=== PATIENT | male | born 1975 ===

== ENCOUNTER 2021-11-26 10:38 | Emergency (ER) | payer MEDICAID, OTHER ==
[~2021-11-26] VITALS: Ht 170.2 cm; Wt 68.0 kg
[2021-11-26] MEDS ORDERED: NAPR500T31 PO (11:59)
[2021-11-26] MEDS ORDERED: CEPH500T PO (11:59)
[2021-11-26 12:08] VITALS: BP 119/77
== END 2021-11-26 12:16 | disposition home or self-care (01) ==
LOC: ER 10:38
DX: S60.422A Blister (nonthermal) of right middle finger, initial encounter (principal); S60.424A Blister (nonthermal) of right ring finger, initial encounter; L08.9 Local infection of the skin and subcutaneous tissue, unspecified; F17.210 Nicotine dependence, cigarettes, uncomplicated; X58.XXXA Exposure to other specified factors, initial encounter; Y93.89 Activity, other specified; Y92.89 Other specified places as the place of occurrence of the external cause; Y99.8 Other external cause status